=== PATIENT | female | born 1985 | race Hispanic/Latino ===

== ENCOUNTER 2021-08-21 11:43 | Emergency (ER) | payer SELFPAY ==
[2021-08-21] MEDS ORDERED: Azithromycin 250 MG TAB ONE (11:59)
[2021-08-21] MEDS ORDERED: cefTRIAXone\\ROCEPHIN 500 MG VIAL ONE (11:59)
[2021-08-21] MEDS ORDERED: Lidocaine 1% PF 5 ML VIAL ONE (12:00)
[2021-08-21 12:43] LABS: Pregnancy Test - Urine (BHCG) Negative (Negative)
[2021-08-21 12:44] LABS: Pregu Control Background? CLEAR/WHITE (CLR/WHITE); Pregu Control Bar Appear? YES (CONTROL BAR); Specific Gravity 1.009 (1.002-1.036)
== END 2021-08-21 13:03 | disposition home or self-care (01) ==
LOC: ERS 11:43
DX: N89.8 Other specified noninflammatory disorders of vagina (principal)
CPT/HCPCS: 81025; 96372; 99283; J0696